=== PATIENT | male | born 1985 | race Caucasian/White ===

== ENCOUNTER 2019-01-25 12:49 | Inpatient (IN) | payer MEDICAID, OTHER ==
[~2019-01-25] VITALS: Ht 185.4 cm; Wt 104.8 kg
[2019-01-25] MEDS ORDERED: PROZ10 PO (13:12)
[2019-01-25] MEDS ORDERED: LORazepam 2 MG/ML VIAL IM ONE (14:30)
[2019-01-25] MEDS ORDERED: HALOPERIDOL 5 MG TABLET PO PRN (15:00)
[2019-01-25 15:06] LABS: BASOPHILS % (AUTO) 0.6 % (0.0-2.0); EOSINOPHILS % (AUTO) 0.5 % (1.0-6.0); HEMOGLOBIN 17.1 g/dL (13.5-17.5); LYMPHOCYTES # (AUTO) 2.1 K/uL (1.0-4.8); LYMPHOCYTES % (AUTO) 19.3 % (22.0-44.0); MEAN CORPUSCULAR HEMOGLOBIN 30.3 pg (26.0-34.0); MEAN CORPUSCULAR HGB CONC 34.3 G/dL (31.0-37.0); MEAN CORPUSCULAR VOLUME 88 fL (80-100); MONOCYTES # (AUTO) 0.6 K/uL (0.1-1.0); MONOCYTES % (AUTO) 5.4 % (2.0-9.0); NEUTROPHILS % (AUTO) 74.2 % (40.0-70.0); PLATELET COUNT (AUTO) 232 K/uL (150-450); RED BLOOD CELL COUNT(AUTO) 5.66 MIL/uL (4.50-5.90)
[2019-01-25 15:18] LABS: ANION GAP 14 mmol/L (8-16); CALCIUM, TOTAL 8.8 mg/dL (8.8-10.5); CARBON DIOXIDE 23 mmol/L (22-29); CHLORIDE 104 mmol/L (98-107); CREATININE 0.71 mg/dL (0.60-1.30); GLOMERULAR FILTR. RATE CALC > 60 mL/min (>60); GLUCOSE,RANDOM 94 mg/dL (70-110); POTASSIUM 3.4 mmol/L (3.5-5.1); SODIUM SERUM 141 mmol/L (136-145); UREA NITROGEN, BLOOD 6 mg/dL (7-18)
[2019-01-25 15:24] LABS: ALANINE AMINOTRANSFERASE 31 U/L (12-78); ALBUMIN 4.6 g/dL (3.4-5.0); ALKALINE PHOSPHATASE 81 U/L (46-116); ASPARTATE AMINOTRANSFERASE 41 U/L (15-37); BILIRUBIN,TOTAL 0.8 mg/dL (0.1-1.0); TOTAL PROTEIN, SERUM 7.9 g/dL (6.4-8.2)
[2019-01-25 16:37] LABS: AMPHET/METH SCREEN,URINE NEGATIVE (NEGATIVE); BARBITURATE SCREEN, URINE NEGATIVE (NEGATIVE); BENZODIAZEPINES SCREEN,URINE NEGATIVE (NEGATIVE); CANNABINOID SCREEN,URINE POSITIVE (NEGATIVE); COCAINE SCREEN,URINE NEGATIVE (NEGATIVE); METHADONE SCREEN, URINE NEGATIVE (NEGATIVE); OPIATE SCREEN,URINE NEGATIVE (NEGATIVE)
[2019-01-25 16:41] LABS: PHENCYCLIDINE SCREEN,URINE NEGATIVE (NEGATIVE)
[2019-01-25 17:42] LABS: APPEARANCE,URINE CLEAR (CLEAR); BILIRUBIN,URINE NEGATIVE (NEGATIVE); GLUCOSE, URINE (UA) NEGATIVE (NEGATIVE); KETONES,URINE >=80 mg/dL (NEGATIVE); LEUKOCYTE ESTERASE ,URINE NEGATIVE (NEGATIVE); NITRATE,URINE NEGATIVE (NEGATIVE); OCCULT BLOOD,URINE NEGATIVE (NEGATIVE); PROTEIN,URINE NEGATIVE (NEGATIVE)
[2019-01-25] MEDS: LORazepam 2 MG TABLET PO PRN (21:37)
[2019-01-26 01:31] VITALS: BP 125/86
[2019-01-26] MEDS ORDERED: INFLUENZA VIRUS VACCINE QVS 2019-20 (3YR+)/PF 60 MCG/0.5 ML SYRINGE IM ONE (06:00)
[2019-01-26 07:22] LABS: CHOL/HDL RATIO 4.8 (4.2-7.3)
[2019-01-26 08:02] VITALS: BP 111/71
[2019-01-26] MEDS: BuPROPion HCL XL 150 MG ER TABLET PO SCH (08:03)
[2019-01-26] MEDS: GABAPENTIN 300 MG CAPSULE PO SCH ×2 (08:03→16:00)
[2019-01-26] MEDS: LORazepam 2 MG TABLET PO PRN ×2 (08:04→17:58)
[2019-01-26] MEDS ORDERED: PETROLATUM,WHITE 28 GM JELLY TP PRN (15:00)
[2019-01-26] MEDS ORDERED: MAG HYDROX/AL HYDROX/SIMETH ES 30 ML SUSPENSION UDCUP PO PRN (15:00)
[2019-01-26] MEDS ORDERED: GuaiFENesin/D-METHORPHAN [SUGAR-FREE] 200-20MG/10 ML SYRUP UDCUP PO PRN (15:00)
[2019-01-26] MEDS ORDERED: LOPERAMIDE HCL 2 MG CAPSULE PO PRN (15:00)
[2019-01-26] MEDS ORDERED: MAGNESIUM HYDROXIDE SUSPENSION 30 ML UDCUP PO PRN (15:00)
[2019-01-26] MEDS ORDERED: CloNIDine HCL 0.1 MG TABLET PO PRN (15:00)
[2019-01-26] MEDS ORDERED: DOCUSATE SODIUM 100 MG CAPSULE PO PRN (15:00)
[2019-01-26] MEDS ORDERED: NICOTINE 14 MG/24 HOUR PATCH TD PRN (15:00)
[2019-01-26] MEDS ORDERED: ALBUTEROL SULFATE HFA 90 MCG/PUFF 8 GM INHALER IH PRN (15:00)
[2019-01-26] MEDS ORDERED: ONDANSETRON HCL 4 MG TABLET PO PRN (15:00)
[2019-01-26 16:01] VITALS: BP 136/85
[2019-01-26] MEDS: ZOLPIDEM TARTRATE 10 MG TABLET PO PRN (21:09)
[2019-01-27 01:36] VITALS: BP 129/88
[2019-01-27] MEDS: LORazepam 2 MG TABLET PO PRN ×3 (06:56→18:43)
[2019-01-27] MEDS: BuPROPion HCL XL 150 MG ER TABLET PO SCH (08:05)
[2019-01-27] MEDS: GABAPENTIN 300 MG CAPSULE PO SCH ×2 (08:05→16:01)
[2019-01-27 08:07] VITALS: BP 122/86
[2019-01-27] MEDS ORDERED: BuPROPion HCL XL 150 MG ER TABLET PO ONE (11:30)
[2019-01-27 18:36] VITALS: BP 120/70
[2019-01-27] MEDS: ZOLPIDEM TARTRATE 10 MG TABLET PO PRN (21:09)
[2019-01-28] VITALS (8 sets, daily range): BP systolic 110–134; BP diastolic 66–86
[2019-01-28] MEDS: IBUPROFEN 400 MG TABLET PO PRN ×2 (08:14→20:00)
[2019-01-28] MEDS: LORazepam 2 MG TABLET PO PRN ×2 (08:14→20:00)
[2019-01-28] MEDS: GABAPENTIN 300 MG CAPSULE PO SCH ×2 (09:12→16:52)
[2019-01-28] MEDS: BuPROPion HCL XL 150 MG ER TABLET PO SCH (09:13)
[2019-01-29 01:50] VITALS: BP 122/78
[2019-01-29] MEDS: ZOLPIDEM TARTRATE 10 MG TABLET PO PRN ×2 (01:57→20:17)
[2019-01-29] MEDS: GABAPENTIN 300 MG CAPSULE PO SCH ×2 (08:16→16:25)
[2019-01-29] MEDS: BuPROPion HCL XL 150 MG ER TABLET PO SCH (08:19)
[2019-01-29 08:35] VITALS: BP 133/78
[2019-01-29] MEDS: LORazepam 2 MG TABLET PO PRN ×2 (09:52→15:05)
[2019-01-29 16:00] VITALS: BP 123/79
[2019-01-30 06:52] VITALS: BP 121/63
[2019-01-30 08:03] VITALS: BP 126/83
[2019-01-30] MEDS: BuPROPion HCL XL 150 MG ER TABLET PO SCH (08:28)
[2019-01-30] MEDS: GABAPENTIN 300 MG CAPSULE PO SCH (08:29)
[2019-01-30] MEDS: IBUPROFEN 400 MG TABLET PO PRN (08:29)
[2019-01-30] MEDS ORDERED: BUPR-93 PO (09:40)
[2019-01-30] MEDS ORDERED: GABA-531 PO (09:41)
== END 2019-01-30 12:45 | disposition home or self-care (01) | DRG 751 ==
LOC: EMS 12:50 → B3A 01-26 00:08 → B2S 01-26 18:19 → B3A 01-26 21:50
PROVIDERS: ADMIT Psychiatry & Neurology Psychiatry; ATTEND Psychiatry & Neurology Psychiatry
DX: F33.2 Major depressive disorder, recurrent severe without psychotic features (principal); F20.9 Schizophrenia, unspecified; R45.851 Suicidal ideations; F41.9 Anxiety disorder, unspecified; F12.90 Cannabis use, unspecified, uncomplicated; F17.210 Nicotine dependence, cigarettes, uncomplicated; E87.6 Hypokalemia; Z88.8 Allergy status to other drugs, medicaments and biological substances; Z88.5 Allergy status to narcotic agent; Z91.013 Allergy to seafood; Z88.2 Allergy status to sulfonamides
CPT/HCPCS: G0480; J2060

== ENCOUNTER 2019-01-28 09:50 | Emergency (ER) | payer MEDICAID, OTHER ==
[~2019-01-28] VITALS: Ht 185.4 cm; Wt 107.7 kg
[~2019-01-28 09:50] MED LIST: PROZ10 PO
[2019-01-28] MEDS ORDERED: LORazepam 2 MG/ML VIAL IM ONE ×2 (11:45→13:30)
[2019-01-28 16:18] VITALS: BP 119/77
== END 2019-01-28 18:07 | disposition other institution (70) ==
LOC: EMS 09:51
DX: S50.02XA Contusion of left elbow, initial encounter (principal); F32.9 Major depressive disorder, single episode, unspecified; F17.210 Nicotine dependence, cigarettes, uncomplicated; F12.90 Cannabis use, unspecified, uncomplicated; Z91.013 Allergy to seafood; Z88.5 Allergy status to narcotic agent; Z88.6 Allergy status to analgesic agent; W18.39XA Other fall on same level, initial encounter; Y93.89 Activity, other specified; Y92.89 Other specified places as the place of occurrence of the external cause; Y99.8 Other external cause status
CPT/HCPCS: 70450; 71101; 72100; 73080; 96372; 99285; J2060

== ENCOUNTER 2020-05-13 11:13 | Inpatient (IN) | payer MEDICAID ==
[~2020-05-13] VITALS: Ht 185.4 cm; Wt 115.2 kg
[~2020-05-13 11:13] MED LIST changes: +BUPR-93 PO; +GABA-1181 PO; -PROZ10 PO
[2020-05-13] MEDS ORDERED: LORazepam 2 MG TABLET PO PRN (16:00)
[2020-05-13] MEDS ORDERED: HALOPERIDOL 5 MG TABLET PO PRN (16:00)
[2020-05-13] MEDS ORDERED: INFLUENZA VIRUS VACCINE QVS 2020-21 (6MO+)/PF 60 MCG/0.5 ML SYRINGE IM ONE (16:45)
[2020-05-13 18:27] VITALS: BP 132/80
[2020-05-14 05:06] VITALS: BP 124/72
[2020-05-14] MEDS ORDERED: MAG HYDROX/AL HYDROX/SIMETH ES 30 ML SUSPENSION UDCUP PO PRN (07:00)
[2020-05-14] MEDS ORDERED: ALBUTEROL SULFATE HFA 90 MCG/PUFF 8 GM INHALER IH PRN (07:00)
[2020-05-14] MEDS ORDERED: OMEPRAZOLE 20 MG CAPSULE PO PRN (07:00)
[2020-05-14] MEDS ORDERED: MAGNESIUM HYDROXIDE SUSPENSION 30 ML UDCUP PO PRN (07:00)
[2020-05-14] MEDS ORDERED: ONDANSETRON HCL 4 MG TABLET PO PRN (07:00)
[2020-05-14] MEDS ORDERED: IBUPROFEN 600 MG TABLET PO PRN (07:00)
[2020-05-14] MEDS ORDERED: BACITRACIN 28 GM OINTMENT TP PRN (07:00)
[2020-05-14] MEDS ORDERED: CloNIDine HCL 0.1 MG TABLET PO PRN (07:00)
[2020-05-14] MEDS ORDERED: DOCUSATE SODIUM 100 MG CAPSULE PO PRN (07:00)
[2020-05-14] MEDS ORDERED: LOPERAMIDE HCL 2 MG CAPSULE PO PRN (07:00)
[2020-05-14] MEDS ORDERED: BENZOCAINE/MENTHOL LOZENGE PO PRN (07:00)
[2020-05-14] MEDS ORDERED: PETROLATUM,WHITE 28 GM JELLY TP PRN (07:00)
[2020-05-14 08:14] VITALS: BP 121/60
[2020-05-14] MEDS ORDERED: NICOTINE 21 MG/24 HOUR PATCH TD ONE (09:00)
[2020-05-14] MEDS: GABAPENTIN 300 MG CAPSULE PO SCH ×2 (12:39→16:04)
[2020-05-14 16:16] VITALS: BP 126/66
[2020-05-14] MEDS: ZOLPIDEM TARTRATE 10 MG TABLET PO PRN (20:53)
[2020-05-15 00:51] VITALS: BP 115/67
[2020-05-15] MEDS: GABAPENTIN 300 MG CAPSULE PO SCH ×3 (08:04→16:05)
[2020-05-15] MEDS: BuPROPion HCL XL 150 MG ER TABLET PO SCH (08:04)
[2020-05-15 08:31] VITALS: BP 103/65
[2020-05-15] MEDS: RisperiDONE 0.5 MG TABLET PO SCH (16:04)
[2020-05-15] MEDS: BusPIRone HCL 5 MG TABLET PO SCH (16:04)
[2020-05-15 16:14] VITALS: BP 130/80
[2020-05-15] MEDS ORDERED: NICOTINE 7 MG/24 HOUR PATCH TD SCH (16:45)
[2020-05-15] MEDS ORDERED: DOXEPIN HCL 25 MG CAPSULE PO SCH (21:00)
[2020-05-15] MEDS ORDERED: HydrOXYzine PAMOATE 50 MG CAPSULE PO SCH (21:00)
[2020-05-15] MEDS: ZOLPIDEM TARTRATE 10 MG TABLET PO PRN (21:32)
[2020-05-16 01:28] VITALS: BP 112/70
[2020-05-16] MEDS ORDERED: LURASIDONE HCL 20 MG TABLET PO SCH (07:00)
[2020-05-16] MEDS: BusPIRone HCL 5 MG TABLET PO SCH (08:12)
[2020-05-16] MEDS: RisperiDONE 0.5 MG TABLET PO SCH (08:13)
[2020-05-16] MEDS: BuPROPion HCL XL 150 MG ER TABLET PO SCH (08:13)
[2020-05-16] MEDS: GABAPENTIN 300 MG CAPSULE PO SCH ×2 (08:13→12:24)
[2020-05-16 08:57] VITALS: BP 132/93
[2020-05-16] MEDS ORDERED: NICOTINE 21 MG/24 HOUR PATCH TD SCH (09:00)
[2020-05-16] MEDS ORDERED: BUSP5TAB20 PO (13:10)
[2020-05-16] MEDS ORDERED: DOXE100 PO (13:11)
[2020-05-16] MEDS ORDERED: RISP0.5T39 PO (13:11)
[2020-05-16] MEDS ORDERED: GABA-1201 PO ×3 (13:11→13:14)
[2020-05-16] MEDS ORDERED: LURA20TA PO (13:12)
[2020-05-16] MEDS ORDERED: HYDR50CA9 PO (13:12)
[2020-05-16] MEDS ORDERED: BUPR-93 PO (13:13)
== END 2020-05-16 14:45 | disposition home or self-care (01) | DRG 750 ==
LOC: B2S 15:57
PROVIDERS: ADMIT Psychiatry & Neurology Psychiatry; ATTEND Psychiatry & Neurology Psychiatry
DX: F25.9 Schizoaffective disorder, unspecified (principal); R45.851 Suicidal ideations; F22 Delusional disorders; K21.9 Gastro-esophageal reflux disease without esophagitis; G47.00 Insomnia, unspecified; F12.10 Cannabis abuse, uncomplicated; K59.00 Constipation, unspecified; F41.9 Anxiety disorder, unspecified; F17.200 Nicotine dependence, unspecified, uncomplicated; Z71.51 Drug abuse counseling and surveillance of drug abuser; Z71.6 Tobacco abuse counseling; Z72.89 Other problems related to lifestyle; Z88.6 Allergy status to analgesic agent; Z88.5 Allergy status to narcotic agent; Z91.013 Allergy to seafood; Z91.018 Allergy to other foods
CPT/HCPCS: Q9967; Z7610